=== PATIENT | female | born 1960 | race Caucasian/White ===

== ENCOUNTER 2020-03-29 20:35 | Emergency (ER) | payer BC ==
[2020-03-29] MEDS ORDERED: Diazepam 5 MG Tab PO ONE (22:18)
[2020-03-29] MEDS ORDERED: Dexamethasone 10 MG/ML SDV IM STA (22:19)
--- NOTE | 2020-03-29 22:22 | EDM.PDOC ---
ED HPI GENERAL MEDICAL PROBLEM - General Chief Complaint: Back Pain or Injury Stated Complaint: LOW BACK Time Seen by Provider: 03/29/20 21:54 - History of Present Illness INITIAL COMMENTS - FREE TEXT/NARRATIVE: History of present illness: This patient is from out of town. She has a long run which was bumpy on the road and it hurt her back. She has prior back problems including neck surgery. Now she is confronted with severe low back pain that radiates down her left thigh somewhat. She lost control of her bladder early this morning on one bump but she has not had any problem with control of bowel or bladder since. She has no other neurologic deficit. She has severe spasm and back pain which is worse with trying to move. Review of systems: As per history of present illness and below otherwise all systems reviewed and negative. Past medical history: As per history of present illness and as reviewed below otherwise noncontributory. Surgical history: As per history of present illness and as reviewed below otherwise noncontributory. Social history: No reported history of drug or alcohol abuse. Family history: As per history of present illness and as reviewed below otherwise noncontributory. Physical exam: Constitutional - well developed, well-nourished and in no acute distress HEENT - normocephalic, no evidence of trauma - external nose and mouth normal - no mass in neck and no JVD - mucosae moist EYES - full EOM, PERRL, no icterus - no evidence of inflammation, injection, or drainage Respiratory - no respiratory distress, equal bilateral expansion, lungs clear to auscultation and no abnormal lung sounds Cardiovascular - Regular Rhythm with S1 and S2 appreciated and no murmur, gallop or rub. Peripheral pulses symmetrically normal in all four extremities GI - abdomen soft without distension or organomegaly - normal bowel sounds - no guard or rebound Musculoskeletal tender low back on both sides in the paraspinous muscles and straight leg raise on the left causes left back pain on the right is negative. No gross deformity of long bones or joints - no tenderness, swelling or edema Neurologic - Alert and oriented times four - CN II-XII grossly intact - motor sensory and coordination symmetrically normal Psychiatric - appropriate mood and affect with normal thought content Hematologic - No petechiae or purpura - mucosa appropriate color and sclera not pale - normal nail bed color and refill Integument - no rash or evidence of trauma - normal turgor Diagnostics: [] Therapeutics: [] Impression: [] Plan: [] Definitive disposition and diagnosis as appropriate pending reevaluation and review of above. back Pain Score (Numeric/FACES): 8 - Related Data Allergies Allergy/AdvReac Type Severity Reaction Status Date / Time No Known Allergies Allergy Verified 03/29/20 21:26 Home Meds: Home Meds DULoxetine [Cymbalta] 30 mg PO DAILY 03/29/20 [History] Gabapentin [Neurontin] 200 mg PO BEDTIME 03/29/20 [History] diazePAM [Valium] 5 mg PO TID PRN #15 tab 03/29/20 [Rx] predniSONE [Prednisone] 60 mg PO DAILY #18 tablet 03/29/20 [Rx] tiZANidine [Zanaflex] 4 mg PO BEDTIME 03/29/20 [History] Past Medical History HEENT History: Reports: None Gastrointestinal History: Reports: None, Other (See Below) Other Gastrointestinal History: colon polyp Genitourinary History: Reports: None 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: Musculoskeletal History: Reports: Other (See Below) Other Musculoskeletal History: degenerative dse Psychiatric History: Reports: Depression - Past Surgical History HEENT Surgical History: Reports: Tonsillectomy GI Surgical History: Reports: Colonoscopy Female Surgical History: Reports: Section Musculoskeletal Surgical History: Reports: Other (See Below) Other Musculoskeletal Surgeries/Procedures:: back sx Social & Family History - Family History Family Medical History: Noncontributory - Tobacco Use Smoking Status *Q: Never Smoker Second Hand Smoke Exposure: No - Caffeine Use Caffeine Use: Reports: Soda - Recreational Drug Use Recreational Drug Use: No ED ROS GENERAL - Review of Systems Review Of Systems: Comprehensive ROS is negative, except as noted in HPI. ED EXAM, GENERAL - Physical Exam Exam: See Below Free Text/Narrative:: The physical examination is in the HPI Course - Vital Signs Last Recorded V/S: Last Vital Signs Temp 97.8 F 03/29/20 21:24 Pulse 71 03/29/20 21:24 Resp 18 03/29/20 21:24 BP 188/95 H 03/29/20 21:24 Pulse Ox 97 03/29/20 21:24 - Orders/Labs/Meds Orders: Active Orders 24 hr Category Date Time Status CULTURE URINE [RM] Stat Lab 03/29/20 21:20 Received Labs: Laboratory Tests 03/29/20 Range/Units 21:20 Urine Color YELLOW Urine Appearance CLOUDY Urine pH 5.5 (5.0-8.0) Ur Specific [place] >= 1.030 (1.001-1.035) Urine Protein NEGATIVE (NEGATIVE) mg/dL Urine Glucose (UA) NEGATIVE (NEGATIVE) mg/dL Urine Ketones NEGATIVE (NEGATIVE) mg/dL Urine Occult Blood NEGATIVE (NEGATIVE) Urine Nitrite NEGATIVE (NEGATIVE) Urine Bilirubin NEGATIVE (NEGATIVE) Urine Urobilinogen 0.2 (<2.0) EU/dL Ur Leukocyte Esterase TRACE H (NEGATIVE) Urine RBC 0-2 (0-2/HPF) Urine WBC 1-4 (0-5/HPF) Ur Epithelial Cells FEW (NONE-FEW) Calcium Oxalate Crystal FEW (NEGATIVE) Amorphous Sediment MODERATE (NEGATIVE) Urine Bacteria 1+ H (NEGATIVE) Meds: Medications Discontinued Medications Generic Name Dose Route Start Last Admin Trade Name Freq PRN Reason Stop Dose Admin Dexamethasone 4 mg 03/29/20 22:19 03/29/20 22:57 Dexamethasone IM 03/29/20 22:20 4 mg ONETIME STA Administration Diazepam 5 mg 03/29/20 22:18 03/29/20 22:57 Valium. PO 03/29/20 22:19 5 mg ONETIME ONE Administration Departure - Departure Time of Disposition: 23:42 Disposition: Home, Self-Care 01 Clinical Impression: Back pain, Back muscle spasm - Discharge Information Prescriptions: predniSONE [Prednisone] 60 mg PO DAILY #18 tablet diazePAM [Valium] 5 mg PO TID PRN #15 tab PRN Reason: Muscle Spasm Instructions: Acute Back Pain, Adult Referrals: PCP,Not In Area [Primary Care Provider] - Forms: ED Department Discharge Additional Instructions: The following information is given to patients seen in the emergency department who are being discharged to home. This information is to outline your options for follow-up care. We provide all patients seen in our emergency department with a follow-up referral. The need for follow-up, as well as the timing and circumstances, are variable depending upon the specifics of your emergency department visit. If you don't have a primary care physician on staff, we will provide you with a referral. We always advise you to contact your personal physician following an emergency department visit to inform them of the circumstance of the visit and for follow-up with them and/or the need for any referrals to a consulting specialist. The emergency department will also refer you to a specialist when appropriate. This referral assures that you have the opportunity for follow-up care with a specialist. All of these measure are taken in an effort to provide you with optimal care, which includes your follow-up. Under all circumstances we always encourage you to contact your private physician who remains a resource for coordinating your care. When calling for follow-up care, please make the office aware that this follow-up is from your recent emergency room visit. If for any reason you are refused follow-up, please contact the [facility] Emergency Department at and asked to speak to the emergency department charge nurse. [facility] [address] [place] [address] [id number] [address] [id number] Sepsis Event Note (ED) - Evaluation Sepsis Screening Result: No Definite Risk - Focused Exam Vital Signs: Vital Signs Temp Pulse Resp BP Pulse Ox 03/29/20 21:24 97.8 F 71 18 188/95 H 97 - My Orders Last 24 Hours: My Active Orders 03/29/20 21:20 CULTURE URINE [RM] Stat - Assessment/Plan Last 24 Hours: My Active Orders 03/29/20 21:20 CULTURE URINE [RM] Stat
== END 2020-03-29 23:40 | disposition home or self-care (01) ==
LOC: MW.ED 20:35
DX: M62.830 Muscle spasm of back (principal); F32.9 Major depressive disorder, single episode, unspecified; Z79.899 Other long term (current) drug therapy
CPT/HCPCS: 81001; 87086; 96372; 99283; A9270; J1100